=== PATIENT | male | born 1970 | race Two or more races ===

== ENCOUNTER 2018-06-14 21:37 | Emergency (ER) | payer SELFPAY ==
[2018-06-14 22:15] VITALS: TEMP 98.1; BMI 31.9
--- NOTE | 2018-06-14 23:26 | PDOC ---
History of Present Illness - General Chief Complaint: Back Pain Stated Complaint: CHEST PAIN Time Seen by Provider: 06/14/18 22:59 History Source: Patient Exam Limitations: No Limitations - History of Present Illness Initial Comments: 06/14/18 23:16 Patient is a 48 year male with no pmhx c/o lower back pain x 2 days which radiates down the right leg. States he was in bed and moved when he developed sudden onset of pain. States he had taken Advil PM and use the patch with no relief of symptoms. He has had this pain in the past but never this bad. States pain is sharp stabbing, 8/10, continuous which is worse with certain movements. ` All bowel or bladder incontinence, no saddle anesthesia. Denies nausea, vomiting, fever, chills. PMHX: neg PSOCHX: neg cig, etoh, drugs ALL: NKDA GENERAL/CONSTITUTIONAL: [No fever or chills. No weakness. No weight change.] HEAD, EYES, EARS, NOSE AND THROAT: [No change in vision. No ear pain or discharge. No sore throat.] CARDIOVASCULAR: [No chest pain or shortness of breath.] RESPIRATORY: [No cough, wheezing, or hemoptysis.] GASTROINTESTINAL: [No nausea, vomiting, diarrhea or constipation. No rectal bleeding.] GENITOURINARY: [No dysuria, frequency, or change in urination.] MUSCULOSKELETAL: [No joint or muscle swelling or pain. No neck or back pain.] SKIN AND BREASTS: [No rash or easy bruising.] NEUROLOGIC: [No headache, vertigo, loss of consciousness, or loss of sensation.] PSYCHIATRIC: [No depression or anxiety.] ENDOCRINE: [No increased thirst. No abnormal weight change.] HEMATOLOGIC/LYMPHATIC: [No anemia, easy bleeding, or history of blood clots.] ALLERGIC/IMMUNOLOGIC: [No hives or skin allergy. No latex allergy.] GENERAL: [The patient is awake, alert, and fully oriented, in no acute distress. ] HEAD: [Normal with no signs of trauma.] EYES: [Pupils equal, round and reactive to light, extraocular movements intact, sclera anicteric, conjunctiva clear.] ENT: [Ears normal, nares patent, oropharynx clear without exudates. Moist mucous membranes.] NECK: [Normal range of motion, supple without lymphadenopathy, JVD, or masses.] LUNGS: [Breath sounds equal, clear to auscultation bilaterally. No wheezes, and no crackles.] HEART: [Regular rate and rhythm, normal S1 and S2 without murmur, rub.] ABDOMEN: [Soft, nontender, normoactive bowel sounds. No guarding, no rebound. No masses.] BACK: tenderness to the lower back, mild tenderness midline lumbar, tenderness to the right buttock, EXTREMITIES: [Normal range of motion, no edema. No clubbing or cyanosis. No cords, erythema, or tenderness.] NEUROLOGICAL: [Cranial nerves II through XII grossly intact, 5/5 strength B/L. Normal speech, normal gait.] PSYCH: [Normal mood, normal affect.] SKIN: [Warm, Dry, normal turgor, no rashes or lesions noted.] Past History - Past Medical History Allergies/Adverse Reactions: Allergies Allergy/AdvReac Type Severity Reaction Status Date / Time No Known Allergies Allergy Verified 06/14/18 22:15 Home Medications: Ambulatory Orders Cyclobenzaprine HCl 10 mg PO TID #20 tablet 06/15/18 Ibuprofen [Motrin -] 600 mg PO QID #28 tablet 06/15/18 Oxycodone HCl/Acetaminophen [Percocet 5-325 mg Tablet] 1 tab PO Q4H #20 tablet MDD 6 06/15/18 - Suicide/Smoking/Psychosocial Hx Smoking History: Never smoked Have you smoked in the past 12 months: No Information on smoking cessation initiated: No Hx Alcohol Use: No Drug/Substance Use Hx: No *Physical Exam - Vital Signs Last Vital Signs Temp Pulse Resp BP Pulse Ox 98.1 F 84 18 141/90 98 06/14/18 22:12 06/14/18 22:12 06/14/18 22:12 06/14/18 22:12 06/14/18 22:12 Moderate Sedation - Procedure Monitoring Vital Signs: Procedure Monitoring Vital Signs Temperature 98.1 F 06/14/18 22:12 Pulse Rate 84 06/14/18 22:12 Respiratory Rate 18 06/14/18 22:12 Blood Pressure 141/90 06/14/18 22:12 O2 Sat by Pulse Oximetry (%) 98 06/14/18 22:12 Medical Decision Making - Medical Decision Making 06/14/18 23:16 Patient is a 48 year male with no pmhx c/o lower back pain x 2 days which radiates down the right leg. States he was in bed and moved when he developed sudden onset of pain. States he had taken Advil PM and use the patch with no relief of symptoms. He has had this pain in the past but never this bad. States pain is sharp stabbing, 8/10, continuous which is worse with certain movements. ` All bowel or bladder incontinence, no saddle anesthesia. Denies nausea, vomiting, fever, chills. Patient has lumbar radicular pain consistent with sciatica. will treat with Toradol 60 mg IM, Valium 5 mg by mouth. I reevaluated EKG: S saw rate 85, NAD, no ST-T wave changes 06/15/18 01:01 Patient feels improved. But still having pain given Percocet 1 tab by mouth I discussed the physical exam findings, ancillary test results and final diagnoses with the patient. I answered all of the patient's questions. The patient was satisfied with the care received and felt comfortable with the discharge plan and treatment plan. The Patient agrees to follow up with the primary care physician within 24-72 hours. *DC/Admit/Observation/Transfer Diagnosis at time of Disposition: Sciatica Qualifiers: Laterality: right Qualified Code(s): M54.31 - Sciatica, right side - Discharge Dispostion Disposition: HOME Condition at time of disposition: Stable - Prescriptions Prescriptions: Cyclobenzaprine HCl 10 mg PO TID #20 tablet Ibuprofen [Motrin -] 600 mg PO QID #28 tablet Oxycodone HCl/Acetaminophen [Percocet 5-325 mg Tablet] 1 tab PO Q4H #20 tablet MDD 6 - Referrals Referrals: Marcio Martin MD [Staff Physician] - - Patient Instructions Printed Discharge Instructions: DI for Back Pain With Sciatica Additional Instructions: Your Discharge Instructions: You must call primary care physician within 24 hours to arrange follow-up. Return to the Emergency Department with any new, persistent or worsening symptoms, for fever, chills, SOB, dizziness or any other concerning changes that may occur. Follow up with ortho. - Post Discharge Activity
[2018-06-14] MEDS ORDERED: KETOROLAC TROMETHAMINE 60 MG/2 ML VIAL IM ONE (23:29)
[2018-06-14] MEDS ORDERED: diazePAM 5 MG TABLET PO ONE (23:29)
[2018-06-14] MEDS ORDERED: KETOROLAC TROMETHAMINE 60 MG/2 ML VIAL ONE (23:40)
[2018-06-14] MEDS ORDERED: diazePAM 5 MG TABLET ONE (23:41)
[2018-06-15] MEDS ORDERED: diazePAM 5 MG TABLET ONE (00:03)
[2018-06-15 01:36] VITALS: BP 109/79; PULSE 82
--- NOTE | 2018-06-15 09:49 | EKG ---
Test Reason : Blood Pressure : / mmHG Vent. Rate : 085 BPM Atrial Rate : 085 BPM P-R Int : 158 ms QRS Dur : 084 ms QT Int : 354 ms P-R-T Axes : 063 005 043 degrees QTc Int : 421 ms NORMAL SINUS RHYTHM NORMAL ECG NO PREVIOUS ECGS AVAILABLE Confirmed by JOSE LUIS LOPEZ MD ([id number]) on 06/15/2018 9:49:25 AM Referred By: Confirmed By:JOSE LUIS LOPEZ MD
== END 2018-06-15 01:43 | disposition home or self-care (01) ==
LOC: JER 21:37
PROC: 3E0233Z Introduction of Anti-inflammatory into Muscle, Percutaneous Approach (ICD-10-PCS; principal; 2018-06-14)
DX: M54.41 Lumbago with sciatica, right side (principal)
CPT/HCPCS: 93005; 93010; 99281-25